=== PATIENT | female | born 1985 | race Caucasian/White ===

== ENCOUNTER 2019-05-20 04:15 | Emergency (ER) | payer BC, MEDICARE ==
[~2019-05-20] VITALS: Ht 162.6 cm; Wt 67.1 kg
[2019-05-20 04:18] VITALS: BP_SYST 126
[2019-05-20 04:30] VITALS: BP_SYST 135
--- NOTE | 2019-05-20 04:35 | NUR ---
Patient to ER bed 05 to gown for evaluation. Side rails up.
--- NOTE | 2019-05-20 04:40 | NUR ---
patient arrived from home AOx4 with c/o inability to relax since tonight. patient states she has had auditory hallucinations. patient states "they are low now but i can't sit still." patient denies SI/HI thinking or thoughts. patient states she just wants to rest. no other complaint or injury at this time.
--- NOTE | 2019-05-20 04:42 | NUR ---
ER at bedside examining patient.
[2019-05-20] MEDS ORDERED: LORazepam 1 MG TABLET PO ONE (04:45)
--- NOTE | 2019-05-20 04:55 | NUR ---
medications given as ordered
--- NOTE | 2019-05-20 05:00 | NUR ---
patient wishes to followup with mental health md.
[2019-05-20] MEDS ORDERED: BENZTROPINE MESYLATE 2 MG/ 2 ML AMP IM ONE (05:15)
[2019-05-20] MEDS ORDERED: DIPHENHYDRAMINE HCL 25 MG CAPSULE PO ONE (05:15)
[2019-05-20 05:30] VITALS: BP_SYST 135
--- NOTE | 2019-05-20 05:30 | NUR ---
Patient given written and verbal discharge instructions and verbalizes understanding. ER MD discussed with patient the results and treatment provided. Patient in stable condition. ID arm band removed. Rx of Ativan given. Patient educated on pain management and to follow up with PMD. Pain Scale 0/10. Opportunity for questions provided and answered. Medication side effect fact sheet provided.
== END 2019-05-20 05:30 | disposition home or self-care (01) ==
LOC: SED 04:15
DX: F09 Unspecified mental disorder due to known physiological condition (principal); F41.9 Anxiety disorder, unspecified
CPT/HCPCS: 96372; 99284; J0515; Q0163

== ENCOUNTER 2019-05-27 21:38 | Emergency (ER) | payer BC ==
[~2019-05-27] VITALS: Ht 162.6 cm; Wt 72.6 kg
[2019-05-27 22:01] VITALS: BP_SYST 147
--- NOTE | 2019-05-27 22:03 | NUR ---
Patient to ER bed H1 for evaluation. Side rails up.
--- NOTE | 2019-05-27 22:05 | NUR ---
Pt is alert and oriented. Pt C/O SOB and difficulity swallowing after eating potato salad. Denies pain at this time. Patient speaking in full sentences without difficulity. Patient states feeling of anxiousness. No signs of SOB or acute distress noted at this time. Will continue to monitor.
--- NOTE | 2019-05-27 22:08 | NUR ---
ER MD GRAY AT BEDSIDE EXAMINING PATIENT.
[2019-05-27] MEDS ORDERED: DIPHENHYDRAMINE HCL 50 MG CAPSULE PO ONE (22:15)
[2019-05-27] MEDS ORDERED: FAMOTIDINE 20 MG TABLET PO ONE (22:15)
--- NOTE | 2019-05-27 22:20 | NUR ---
Medication administered. Pt tolerated well. No adverse reactions noted.
--- NOTE | 2019-05-27 22:37 | NUR ---
Patient given written and verbal discharge instructions and verbalizes understanding. ER MD Lassiter discussed with patient the results and treatment provided. Patient in stable condition. ID arm band removed. Rx of Pepcid and Benadryl given. Patient educated on pain management and to follow up with PMD. Pain Scale 0/10. Opportunity for questions provided and answered. Medication side effect fact sheet provided.
--- NOTE | 2019-05-28 00:35 | NUR ---
Pt returned to ER hallway bed. Pt C/O going home and attempting to have something to eat and feeling SOB again. VSS. Denies pain at this time. Pt speaking in full sentences. No signs of SOB or acute distress noted. Family at bedside. Will continue to monitor.
[2019-05-28] MEDS ORDERED: BELLADONNA ALKALOIDS/PHENOBARB 5 ML UDC PO ONE (00:45)
[2019-05-28] MEDS ORDERED: LIDOCAINE VISCOUS 2%, 15 ML UDC MM ONE (00:45)
[2019-05-28] MEDS ORDERED: MAG-AL HYDROX/SIMETH 30 ML UDC PO ONE (00:45)
--- NOTE | 2019-05-28 00:45 | NUR ---
ER MD WILLETT AT BEDSIDE EXAMINING PATIENT.
[2019-05-28] MEDS ORDERED: DICYCLOMINE HCL 10 MG/5 ML SOLUTION PO ONE (01:00)
[2019-05-28 01:06] LABS: RED CELL DISTRIBUTION WIDTH 15.3 % (9.0-15.0)
[2019-05-28 01:13] LABS: BASOPHILS % (AUTO) 0.6 % (0.0-2.0); EOSINOPHILS % (AUTO) 0.2 % (0.0-4.0); HEMATOCRIT 33.6 % (36-48); HEMOGLOBIN 11.1 g/dL (12.0-16.0); LYMPHOCYTES # (AUTO) 1.9 K/uL (1.0-5.5); LYMPHOCYTES % (AUTO) 26.7 % (20.5-51.5); MEAN CORPUSCULAR HEMOGLOBIN 25 pg (27-31); MEAN CORPUSCULAR HGB CONC 33 % (32-36); MEAN CORPUSCULAR VOLUME 76 fL (79.0-98.0); MONOCYTES # (AUTO) 0.5 K/uL (0.0-1.0); MONOCYTES % (AUTO) 6.2 % (1.7-9.3); NEUTROPHILS # (AUTO) 4.8 K/uL (1.8-7.7); NEUTROPHILS % (AUTO) 66.3 % (40.0-70.0); PLATELET COUNT (AUTO) 264 K/uL (130-430); RED BLOOD CELL COUNT(AUTO) 4.41 MIL/uL (4.2-6.2); WHITE BLOOD COUNT (AUTO) 7.3 K/uL (4.8-10.8)
[2019-05-28 01:14] LABS: CALCIUM 9.1 mg/dL (8.4-11.0); CREATININE 0.7 mg/dL (0.55-1.30); POTASSIUM 3.9 mmol/L (3.5-5.1)
[2019-05-28] MEDS ORDERED: DICYCLOMINE HCL 10 MG/5 ML SOLUTION ONE (01:14)
[2019-05-28 01:31] LABS: ALBUMIN 4.2 g/dL (3.4-4.8); TOTAL BILIRUBIN 0.2 mg/dL (0.0-1.0)
[2019-05-28 02:49] VITALS: BP_SYST 136
--- NOTE | 2019-05-28 02:49 | NUR ---
Patient given written and verbal discharge instructions and verbalizes understanding. ER MD discussed with patient the results and treatment provided. Patient in stable condition. ID arm band removed. Rx of Pepcid and Benadryl given. Patient educated on pain management and to follow up with PMD. Pain Scale 0. Opportunity for questions provided and answered. Medication side effect fact sheet provided.
== END 2019-05-28 02:49 | disposition home or self-care (01) ==
LOC: SED 21:38
DX: F41.9 Anxiety disorder, unspecified (principal); R06.02 Shortness of breath; R06.00 Dyspnea, unspecified
CPT/HCPCS: 36415; 71045; 80053; 83880; 84484; 84702; 85025; 85379; 99284; J2001; Q0163